=== PATIENT | male | born 1950 | race Caucasian/White ===

== ENCOUNTER → 2016-10-27 09:47 | Outpatient (CLI) | payer MEDICARE, OTHER ==
[2012-06-02 08:38] VITALS: BMI 31.1
== END | disposition home or self-care (01) ==
LOC: D.MRI 10-26 12:00 → D.CT 09:47 → D.MRI 10:00 → D.CT 10:00
DX: M51.36 Other intervertebral disc degeneration, lumbar region (principal); M21.371 Foot drop, right foot

== ENCOUNTER → 2017-09-09 14:53 | Outpatient (CLI) | payer MEDICARE, OTHER ==
[2012-06-02 08:38] VITALS: BMI 31.1
== END | disposition home or self-care (01) ==
LOC: D.CT 14:53
DX: R10.9 Unspecified abdominal pain (principal)